=== PATIENT | female | born 1990 | race African-American/Black ===

== ENCOUNTER 2019-08-30 22:53 | Emergency (ER) | payer OTHER ==
[~2019-08-30] VITALS: Ht 157.5 cm; Wt 66.8 kg
[2019-08-30 23:56] VITALS: BP 120/63
[2019-08-31] MEDS ORDERED: ALPR0.5T PO (00:05)
--- NOTE | 2019-08-31 00:05 | PHYS DOC ---
General Adult EDM: Chief Complaint: ANXIETY/PANIC ATTACK HPI: HPI: Patient is a 29 year old female with is currently on no medications presents for evaluation if increased heart rate, shortness of breath and sensation of going to pass out. Onset prior to arrival. Patient state she got in bed and symptoms suddenly started. Episodes lasted 8 minutes then resolved. Patient is symptom free at this time. Patient states she has had similar episodes in the past but not as intense. Review of Systems: Review of Systems: Constitutional: Denies fever or chills. [] Eyes: Denies change in visual acuity. [] HENT: Denies nasal congestion or sore throat. [] Respiratory: Denies cough positive shortness of breath. [] Cardiovascular: Denies chest pain or edema. [postitive palpation] GI: Denies abdominal pain, nausea, vomiting, bloody stools or diarrhea. [] : Denies dysuria. [] Musculoskeletal: Denies back pain or joint pain. [] Integument: Denies rash. [] Neurologic: Denies headache, focal weakness or sensory changes. [] Endocrine: Denies polyuria or polydipsia. [] Lymphatic: Denies swollen glands. [] Psychiatric: Denies depression or anxiety. [] Heart Score: Risk Factors: Risk Factors: DM, Current or recent (<one month) smoker, HTN, HLP, family history of CAD, obesity. Risk Scores: Score 0 - 3: 2.5% MACE over next 6 weeks - Discharge Home Score 4 - 6: 20.3% MACE over next 6 weeks - Admit for Clinical Observation Score 7 - 10: 72.7% MACE over next 6 weeks - Early Invasive Strategies Allergies: Allergies: Allergies Coded Allergies Type Severity Reaction Last Updated Verified Sulfa (Sulfonamide Antibiotics) Allergy Severe SEIZURES 03/09/13 Yes zonisamide Allergy Severe SEIZURES 03/09/13 Yes Physical Exam: PE: Constitutional: Well developed, well nourished, no acute distress, non-toxic appearance. [] HENT: Normocephalic, atraumatic, bilateral external ears normal, oropharynx moist, no oral exudates, nose normal. [] Eyes: PERRLA, EOMI, conjunctiva normal, no discharge. [] Neck: Normal range of motion, no tenderness, supple, no stridor. [] Cardiovascular:Heart rate regular rhythm, no murmur [] Lungs & Thorax: Bilateral breath sounds clear to auscultation [] Abdomen: Bowel sounds normal, soft, no tenderness, no masses, no pulsatile masses. [] Skin: Warm, dry, no erythema, no rash. [] Back: No tenderness, no CVA tenderness. [] Extremities: No tenderness, no cyanosis, no clubbing, ROM intact, no edema. [] Neurologic: Alert and oriented X 3, normal motor function, normal sensory function, no focal deficits noted. [] Psychologic: Affect normal, judgement normal, mood normal. [] EKG: EKG: [] Radiology/Procedures: Radiology/Procedures: [] Course & Med Decision Making: Course & Med Decision Making Pertinent Labs and Imaging studies reviewed. (See chart for details) [] Symptoms completely resolved prior to my examination. Patient states she feels fine. Will prescribe patient anxiety medication. Patient to follow-up with her primary care physician. Karuna Disclaimer: Karuna Disclaimer: This electronic medical record was generated, in whole or in part, using a voice recognition dictation system. Departure Departure Impression: Primary Impression: Anxiety Disposition: 01 HOME, SELF-CARE Condition: STABLE Referrals: NO PCP (PCP) Patient Instructions: Anxiety and Panic Attacks Scripts Alprazolam (XANAX) 0.5 Mg Tablet 1 TAB PO TID, #15 TAB Prov: CARLO PAVON I DO 08/31/19 Justicifation of Admission Dx: Justifications for Admission: Justification of Admission Dx: N/A CARLO PAVON I DO Aug 31, 2019 00:05
== END 2019-08-31 00:23 | disposition home or self-care (01) ==
LOC: ER 22:53
DX: F41.9 Anxiety disorder, unspecified (principal); R06.02 Shortness of breath; R20.0 Anesthesia of skin; Z88.2 Allergy status to sulfonamides; Z88.8 Allergy status to other drugs, medicaments and biological substances
CPT/HCPCS: 99283